=== PATIENT | male | born 1995 | race Two or more races ===

== ENCOUNTER 2018-12-22 18:26 | Emergency (ER) | payer OTHER ==
[~2018-12-22] VITALS: Ht 175.3 cm; Wt 93.9 kg
[2018-12-22 18:54] VITALS: BP 132/70
[2018-12-22] MEDS ORDERED: TERB30CR TP (19:09)
[2018-12-22] MEDS ORDERED: SULF1TAB24 PO (19:09)
--- NOTE | 2018-12-22 19:09 | PHYS DOC ---
Past History Past Medical History: No Pertinent History Past Surgical History: No Surgical History Alcohol Use: Occasionally Drug Use: None Adult General Chief Complaint Chief Complaint: SKIN PROBLEM HPI HPI Patient is a 23-year-old male who presents with complaint of redness, itching and skin lesions where he had a tattoo placed about a week ago. Patient states that this skin lesions look like ringworm. He also indicates that there has been redness and swelling in the area and he has been scratching a lot. He denies any fever. He rates pain as being mild to moderate. Review of Systems Review of Systems Constitutional: Denies fever or chills [] Respiratory: Denies cough or shortness of breath [] Cardiovascular: No additional information not addressed in HPI [] Integument: Positive rash and round skin lesions [] Neurologic: Denies headache, focal weakness or sensory changes [] Allergies Allergies Allergies Coded Allergies Type Severity Reaction Last Updated Verified No Known Drug Allergies 12/22/18 No Physical Exam Physical Exam Constitutional: Well developed, well nourished, no acute distress, non-toxic appearance. [] Cardiovascular:Heart rate regular rhythm, no murmur [] Lungs & Thorax: Bilateral breath sounds clear to auscultation [] Skin: Warm, dry. Examination of left arm demonstrates erythema and warmth overlying area of tach to primarily around the elbow. There are also circular, round lesions with erythematous raised borders within margin of tattoo. [] Neurologic: Alert and oriented X 3, no focal deficits noted. [] Current Patient Data Vital Signs Vital Signs Date Time Temp Pulse Resp B/P (MAP) Pulse Ox O2 Delivery O2 Flow Rate FiO2 12/22/18 18:54 98.0 76 16 98 Room Air EKG EKG [] Radiology/Procedures Radiology/Procedures [] Course & Med Decision Making Course & Med Decision Making Pertinent Labs and Imaging studies reviewed. (See chart for details) [] Dragon Disclaimer Dragon Disclaimer This electronic medical record was generated, in whole or in part, using a voice recognition dictation system. Departure Departure: Impression: Primary Impression: Tinea corporis Additional Impression: Cellulitis of arm, left Disposition: 01 HOME, SELF-CARE Condition: STABLE Referrals: TIFFANIE BIRCH PA-C (PCP) Patient Instructions: Body Ringworm, Cellulitis Scripts Terbinafine HCl (Lamisil At) 30 Gm Cream..g. 1 UMAIR TP BID for ringworm for 14 Days, #30 GM Prov: ANABELLE MERCADO Jr. DO 12/22/18 Sulfamethoxazole/Trimethoprim (BACTRIM DS TABLET) 1 Each Tablet 1 TAB PO BID for infection, #20 TAB Prov: ANABELLE MERCADO Jr. DO 12/22/18 Problem Qualifiers ANABELLE MERCADO Jr. DO Dec 22, 2018 19:09
--- NOTE | 2018-12-27 21:30 | PN ---
DATE: 12/22/2018 SUBJECTIVE: The patient is resting, slightly propped up in his recliner in no apparent distress. On questioning him, he denied any complaint, in particular denied any shortness of breath and chest pain. He did receive 1 unit of packed RBCs yesterday and his hemoglobin has risen from 7.3 and 21.4 to 8.3 and 24.6 and this morning came down to 7.9 and 23.4 and platelet count is slightly up, edging up from 97 to 114. PHYSICAL EXAMINATION: GENERAL: When I examined him, he looked pale, but no jaundice, cyanosis, or thyromegaly. No jugular venous distension. Has bilateral lower limb edema. VITAL SIGNS: His heart rate was 82, blood pressure 120/66, temperature was 97.8, respiratory rate was 20, and oxygen saturation was 96% on room air. HEAD, EYES, EARS, NOSE AND THROAT: Showed normocephalic, atraumatic. NECK: Supple. HEART: Showed normal first and second heart sounds. No gallop, rub or murmur. CHEST: Clear to auscultation. No crepitation or rhonchi. ABDOMEN: Distended, soft, nontender. NEUROLOGIC: He is awake, alert, responding appropriately. All his cranial nerves are intact. He moves extremities without difficulty, ambulates with a walker. His intake over the last 24 hours was 1180, no output was recorded. LABORATORY DATA: As of this morning, his white cell count was 5900, hemoglobin 7.9, hematocrit 23.4, MCV 88 and platelet count of 114,000. Serum sodium was 145, potassium 3.7, chloride 107, bicarbonate 29, anion gap of 9, BUN 22, creatinine 1.9, estimated GFR was 35 mL per minute, his glucose 105 and calcium was 8.4. ASSESSMENT: 1. Osteomyelitis of the right foot for which he continues to be on Zosyn 2.25 grams IV q.8 hourly. 2. Peripheral vascular disease, status post right forefoot amputation. 3. Coronary artery disease. 4. Cryptogenic stroke. 5. Normochromic normocytic anemia with a hemoglobin of 7.9 after receiving 1 unit of packed RBCs, his stool for occult blood was negative. CT scan of the abdomen showed no evidence of retroperitoneal bleed. 6. [id number] kidney injury. His creatinine has risen from 1.5 to 2. 7. Severe protein-calorie malnutrition as his serum albumin is only 2.2 g/dL. 8. Thrombocytopenia. PLAN: Obviously await the Cardiology team and decision as I was told that Dr. Lorenz is planning to transfer the patient to [facility] for right heart catheterization. BYRON MCKOY MD DR: JOHAN/anne JOB#: [id number] / [id number]
== END 2018-12-22 19:17 | disposition home or self-care (01) ==
LOC: ER 18:26
DX: B35.4 Tinea corporis (principal); L03.114 Cellulitis of left upper limb
CPT/HCPCS: 99283